=== PATIENT | male | born 1995 | race Hispanic/Latino ===

== ENCOUNTER 2016-09-10 21:50 | Emergency (ER) | payer OTHER ==
[~2016-09-10] VITALS: Ht 175.3 cm; Wt 81.8 kg
[2016-09-10 21:55] VITALS: BP 122/75; PULSE 85; RESP 16; O2SAT 98
--- NOTE | 2016-09-10 23:26 | ED.REPORT ---
HPI-General Illness Date of Service Sep 10, 2016 ED Provider: Mikel Salmeron MD Patient is a 21 year old male s/p recent vitrectomy for a vitreous detachment who presents to the ED after he developed numbness and tingling of his face following Diamox administration at 1600 today. The patient went in for his follow-up appointment today following is vitrectomy and his advertising project manager noticed that he had increased fluid in his eye. The patient was given Diamox and fluid was drained from his eye. The patient reports clouded thinking and states that he simply does not feel like himself. He is generally very anxious and states that he has been more anxious since his procedure in general. The patient states that he has not been eating or sleeping well. The patient must stay in a position with his head titled down, to keep the bubble placed during the vitrectomy in place. Nursing Notes Stated Complaint: OVER DOSE Chief Complaint: Allergic Reaction Nursing Notes Reviewed: Yes Allergies: Coded Allergies: No Known Allergies (Unverified , 09/10/16) General Time Seen by MD: 23:11 Chief Complaint Dizziness, Not feeling well Hx Obtained From: Patient Arrived By: Walk-in Sudden in Onset?: No Onset Occurred: 9 - 12 hours ago Symptom Duration: Since onset Severity: Current: No pain currently Severity: Maximum: No pain Recent Healthcare: No recent hospitalization, Recent doctor visit Similar Sx Previous: No Past Medical History Past Medical History vitreous detachment Reports: Glaucoma Past Surgical History none reported Smoking History Never Smoker Social History vitrectomy Alcohol Use: Denies alcohol use Drug Use: Denies drug use Other Social History: Good social support, Local resident Ambulatory Status Independent Review of Systems + not sleeping or eating well Full Review of Systems Neurologic: Reports: Dizziness, Numbness (tingling) Psychiatric: Reports: Anxiety, Change mental status (clouded thinking) Complete sys rev & neg: except as marked. Physical Exam Vital Signs Vital Signs Date Time Temp Pulse Resp B/P Pulse Ox O2 Delivery O2 Flow Rate FiO2 09/10/16 23:47 82 123/85 99 Room Air 09/10/16 21:55 36.8 85 16 122/75 98 Room Air Initial VS: Reviewed, Vital signs normal Extremities: Vascular intact, Neuro intact Skin: Warm, Dry, No cyanosis Psychiatric: Mood/affect normal, Behavior normal, Normal thought content General/Constitutional: Awake, Alert face down seated position due to recent vitrectomy Head / Eyes: Atraumatic, Normocephalic ENT: Airway patent, Mucous membranes moist Neck: Supple, Full range of motion Respiratory / Chest: Breath sounds NL, Breath sounds = bilat, No respiratory distress, No rales, No rhonchi, No wheezing Cardiovascular: Heart rate NL, Regular rhythm, Heart sounds NL Skin: No rash, Warm, Dry Neurologic: Oriented X3, Speech NL, No motor deficits, No sensory deficits, CN II - XII intact Re-Eval/Medical Decision Med Decision/Clinical Course Nonspecific symptoms possibly related to side effects of Diamox and/or anxiety. There are no life-threatening symptoms and he is improving. He is discharged home. It is expected that all of his symptoms will gradually improve over the 8 -12 hour affective time range of this medication. Source of Hx: Old records Time of Eval: 23:50 Re-Evaluation/Progress Note: Patient was informed that Diamox can last up to 12 hours. He was offered something for sleep, which he declined. Patient understands and agrees with the plan to be discharged home. Discharge instructions and follow-up discussed. All questions were addressed. Return to the ED warnings given. Counseled Regarding: Diagnosis, Need for follow-up, When/why to return to ED Discharge & Departure Primary Impression: Medication side effects Encounter type: initial encounter Qualified Code: T88.7XXA - Unspecified adverse effect of drug or medicament, initial encounter Disposition: Home Discharge Condition All VS Reviewed: Yes Condition: Stable Patient Instructions: Acetazolamide (By mouth) Additional Instructions: Your symptoms sound like a combination of side effects of the Diamox and some anxiety. Diamox lasts 8-12 hours in your system so your symptoms should resolve by that time. No further treatment is needed. Referrals: [facility] (PCP) Paulaibe Attestation Portions of this note were transcribed by Emily Weller. I, Dr. Salmeron personally performed the history, physical exam and medical decision-making; I reviewed and confirmed the accuracy of the information in the transcribed note. Signed by: Joey Miller, 09/11/2016 0013 copies to: [facility] Howard L MD Sep 10, 2016 23:25 Emily Weller Sep 10, 2016 23:32
[2016-09-10 23:47] VITALS: BP 123/85; PULSE 82; O2SAT 99
== END 2016-09-10 23:51 | disposition home or self-care (01) ==
LOC: SED 21:50
DX: R20.2 Paresthesia of skin (principal); R41.0 Disorientation, unspecified; T50.2X5A Adverse effect of carbonic-anhydrase inhibitors, benzothiadiazides and other diuretics, initial encounter; X58.XXXA Exposure to other specified factors, initial encounter; Y92.9 Unspecified place or not applicable; Y93.9 Activity, unspecified; Y99.9 Unspecified external cause status; F41.9 Anxiety disorder, unspecified; Z86.69 Personal history of other diseases of the nervous system and sense organs; Z98.890 Other specified postprocedural states

== ENCOUNTER 2016-12-15 22:16 | Emergency (ER) | payer OTHER ==
[~2016-12-15] VITALS: Ht 175.3 cm; Wt 81.8 kg
[2016-12-15 22:20] VITALS: BP 112/75; PULSE 80; RESP 16; O2SAT 98
[2016-12-15] MEDS ORDERED: Tetracaine 0.5% 4 mL Ophthalmic Solution ONE (23:22)
[2016-12-15] MEDS ORDERED: Tetracaine 0.5% 4 mL Ophthalmic Solution LEFT_EYE ONE (23:25)
--- NOTE | 2016-12-15 23:35 | ED.REPORT ---
HPI-Eye Problem Date of Service December 15, 2016 ED Provider: Yuan Leonard DO Patient is a 21 year old male with a history of glaucoma and retinal detachment surgery on 12/10/16 who presents to the ED complaining of left eye pain onset 4 days ago. Associated symptoms include eye swelling, erythema and pain that radiates into his left mosque and skull. His vision is blurry but not any different than baseline. He denies having any crusting on his eyelids. The patient was seen in [place] 3 days ago to check his pressure, which was 24 and there was no signs of infection. Nursing Notes Stated Complaint: HEAD AND LEFT EYE PAIN Chief Complaint: Eye Nursing Notes Reviewed: Yes Allergies: Coded Allergies: No Known Allergies (Unverified , 09/10/16) General Time Seen by MD: 23:23 Chief Complaint Left eye affected Arrived By: Walk-in Sudden in Onset?: Yes Onset Occurred: 4 days ago Symptom Duration: Since onset Location: : Eye left Recent Healthcare: No recent hospitalization, Recent doctor visit Similar Sx Previous: Yes Past Medical History Past Medical History vitreous detachment Reports: Glaucoma Past Surgical History none reported Smoking History Never Smoker Social History vitrectomy Alcohol Use: Denies alcohol use Drug Use: Denies drug use Other Social History: Good social support, Local resident Ambulatory Status Independent Review of Systems Review of Systems Note: eye swelling Eyes: Reports: Eye pain left, Redness left Complete sys rev & neg: except as marked. 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 minimal left visual acuity, can barely see when 5 fingers where held up pupils sluggish to react conjunctival injection no obvious cells in anterior chamber General/Constitutional: Awake, Alert Skin: Atraumatic, Color NL, No rash, Warm, Dry Neurologic: Oriented X3, Speech NL, No motor deficits, No sensory deficits Respiratory / Chest: Atraumatic, Breath sounds NL, Breath sounds = bilat, No respiratory distress Cardiovascular: Heart rate NL, Regular rhythm, Heart sounds NL Abdomen: Atraumatic, Soft, Non-tender Psychiatric: Affect NL, Mood NL Interpretation & Diagnostics CT Head Interpretation CONCLUSION: No acute intracrainial findings. at 0005 Study: Head CT no contrast Interpretation / Wet Read by: Interpret - Radiologist Re-Eval/Medical Decision Med Decision/Clinical Course No signs of endophthalmitis. There is no hypopyon visualized. Difficult for me to see the retina. Pressure was 36. I consulted with his biological science aide who knows him well. He does not want me to do anything more beyond treating his pain and will see him in the office later today. CT scan was reassuring. Pain was controlled with Percocet. Yogesh is on glaucoma medicines and will continue this. He will follow up later today. Re-Evaluation/Progress : Time of Eval: 00:40 Re-Evaluation/Progress Note: Discussed CT and plan for discahrge. The patient understands and agrees to the plan for discharge. All questions were addressed. Consultation : Consulted With: On-call physician Call Returned at: 23:43 Case Advocate: Will see patient, Agrees with eval, Agrees with plan Note: Consult with Dr. Aguilar, coat feller, who will see the patient tomorrow. Counseled Regarding: Diagnosis, Lab results, Need for follow-up, When/why to return to ED Discharge & Departure Primary Impression: Conjunctival injection Laterality: left Qualified Code: H11.432 - Conjunctival hyperemia, left eye Additional Impression: Eye pain Laterality: left Qualified Code: H57.12 - Ocular pain, left eye Disposition: Home Discharge Condition All VS Reviewed: Yes Condition: Stable Patient Instructions: Eye Pain (ED) Additional Instructions: Your head CT results were normal. Your eye doctor will see you tomorrow. Call the office tomorrow morning for a follow up time. Continue to stay on your eye drops and medications. You can take one Percocet every 6 hours for pain and one Zofran every 3 hours for nausea. Return to the emergency department if you develop any new or worsening symptoms. Referrals: [facility] (PCP) PATRICIA AGUILAR MD Attestation Portions of this note were transcribed by Francia Livingston. I, Dr. Leonard personally performed the history, physical exam and medical decision-making; I reviewed and confirmed the accuracy of the information in the transcribed note. Signed by: Joey Hopkins, 12/16/16 and 0020 copies to: [facility]; PATRICIA AGUILAR MD, Todd P DO December 15, 2016 23:35 Grace Livingston December 16, 2016 00:13
[2016-12-15] MEDS ORDERED: oxyCODONE-Acetamin 5-325 mg Tablet PO ONE (23:40)
[2016-12-16] MEDS ORDERED: _Ondansetron ODT 4 mg Tablet PO PRN (00:05)
[2016-12-16] MEDS ORDERED: _oxyCODONE/APAP 5-325 mg Tablet PO PRN (00:05)
[2016-12-16 01:06] VITALS: BP 107/76; PULSE 52; PULSE 62; RESP 16; O2SAT 99
--- NOTE | 2016-12-16 10:35 | DRSVH ---
PROCEDURE: CT BRAIN WITHOUT CONTRAST ([id number]) INDICATIONS: left retrobulbar headache, recent eye surgery TECHNIQUE: Noncontrast 4.5 mm thick angled axial sections acquired from the foramen magnum to the vertex, with c oronal reformats. COMPARISON: None. FINDINGS: Image quality: Excellent. CSF spaces: Basal cisterns are patent. No extra-axial fluid collections. Ventricles are normal in size and shape. Brain: No midline shift. No intracranial masses or hemorrhage. White-white matter interface is norm al. Skull and face: Calvarium and visualized facial bones are intact, without suspicious lesions. Sinuses: Visualized sinuses and mastoids are clear. IMPRESSION: 1. No acute intracranial process. Dictated by: Zeynep Wetzel M.D. on 12/16/2016 at 10:27 Approved by: Zeynep Wetzel M.D. on 12/16/2016 at 10:33
== END 2016-12-16 01:07 | disposition home or self-care (01) ==
LOC: SED 22:16
DX: H11.432 Conjunctival hyperemia, left eye (principal); H40.9 Unspecified glaucoma; Z98.890 Other specified postprocedural states

== ENCOUNTER 2016-12-30 21:24 | Emergency (ER) | payer OTHER ==
[~2016-12-30] VITALS: Ht 175.3 cm; Wt 81.8 kg
[2016-12-30 21:26] VITALS: BP 115/74; PULSE 74; RESP 16; O2SAT 99
--- NOTE | 2016-12-30 22:57 | ED.REPORT ---
HPI-General Illness Date of Service December 30, 2016 ED Provider: Yareli Sánchez MD Pt is a 21 y/o relatively healthy male w/ a hx of glaucoma s/p right eye removal presenting to the ED c/o hot and cold flashes onset yesterday. He c/o associated pain about the feet and knees, facial and bilateral hand flashes of warmth, and a short period of pulsating sensation about the abdomen which occurred only once yesterday. Pt denies dysuria, rash, nausea, vomiting, diarrhea, myalgias, cough, SOB, CP. The patient takes an antibiotic eyedrop and uses prednisolone eyedrops for his glaucoma. He has no history of RA or other rheumatoid diseases. He has not tried Ibuprofen for this pain. He has no family history of glaucoma and was diagnosed at age 5. 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 Nursing Notes Stated Complaint: HOT & COLD FLASHES, LEG PAIN Chief Complaint: General Complaint Nursing Notes Reviewed: Yes Allergies: Coded Allergies: No Known Allergies (Unverified , 09/10/16) General Time Seen by MD: 22:56 Chief Complaint Multip medical complaints Hx Obtained From: Patient Arrived By: Walk-in Sudden in Onset?: Yes Onset Occurred: 1 day ago Symptom Duration: Since onset Location: : Abdomen: Foot left: Foot right: Knee left: Knee right Quality: Painful Severity: Current: No pain currently Severity: Maximum: Mild Similar Sx Previous: No Past Medical History Past Medical History vitreous detachment glaucoma dxed age 5 Reports: Glaucoma Past Surgical History Right eye removed Smoking History Never Smoker Social History Alcohol Use: Denies alcohol use Drug Use: Denies drug use Other Social History: Good social support, Local resident Ambulatory Status Independent Review of Systems +hot and cold flashes Full Review of Systems Constitutional: Denies: Chills, Fever Respiratory: Denies: Non-productive cough, Shortness of breath Cardiovascular: Denies: Chest pain, Dyspnea on exertion GI: Reports: Abdominal pain, Denies: Diarrhea, Nausea, Vomiting Male: Denies Dysuria, Denies Hematuria Musculoskeletal: Reports: Extremity pain, Joint pain, Denies: Myalgia Complete sys rev & neg: except as marked. Physical Exam Vital Signs Vital Signs Date Time Temp Pulse Resp B/P Pulse Ox O2 Delivery O2 Flow Rate FiO2 12/31/16 01:09 36.9 72 16 118/77 97 Room Air 12/31/16 00:42 36.6 70 17 118/72 98 Room Air 12/30/16 21:26 36.7 74 16 115/74 99 Room Air Initial VS: Reviewed, Vital signs normal ENT: Mucous membranes moist, Conjunctiva normal, No scleral icterus Neck: Supple, Full range of motion Respiratory: Breath sounds normal, Clear to auscultation, No respiratory distress Cardiovascular: Regular rate & rhythm, Heart sounds normal, Intact distal pulses Abdomen / GI: Soft, Non-tender, No guarding, No rebound, No distention Extremities: Vascular intact, Neuro intact, No swelling, No tenderness Skin: Warm, Dry, No cyanosis Neurologic: Alert, Oriented, Nonfocal Psychiatric: Mood/affect normal, Behavior normal, Normal thought content General/Constitutional: Awake, Alert, No acute distress, Cooperative, Not toxic appearing Head / Eyes: Atraumatic, Normocephalic Right eye missing Left eye is proptotic and has a subconjunctival hemorrhage Interpretation & Diagnostics Lab Results Interpretation Result Diagram: 12/30/16232712/30/162327 Test 12/30/16 23:28 White Blood Count 5.9th/mm3 (3.8-10.1) Red Blood Count 5.18mil/mm3 (4.40-5.80) Hemoglobin 15.2g/dL (13.8-17.2) Hematocrit 45.2% (41.0-50.0) Mean Corpuscular Volume 87.3fL (81-100) Mean Corpuscular Hemoglobin 29.3pg (27.0-35.0) Mean Corpuscular Hemoglobin Concent 33.6% (32.0-37.0) Red Cell Distribution Width 13.8% (12.3-15.4) Platelet Count 228bil/L (150-400) Neutrophils (%) (Auto) 64.2% (40-74) Lymphocytes (%) (Auto) 23.6% (14-46) Monocytes (%) (Auto) 10.5% (4-12) Eosinophils (%) (Auto) 1.0% (0-5) Basophils (%) (Auto) 0.5% (0-3) Erythrocyte Sedimentation Rate 2mm/hr (0-15) Sodium Level 141mEq/L (134-144) Potassium Level 4.0mEq/L (3.5-5.2) Chloride Level 101mEq/L (97-108) Carbon Dioxide Level 25mmol/L (18-29) Blood Urea Nitrogen 8mg/dL (6-20) Creatinine 0.55mg/dL (0.76-1.27) Estimat Glomerular Filtration Rate 200mL/min (>59) Glucose Level 99mg/dL (60-99) Calcium Level 9.6mg/dL (8.5-10.1) Total Bilirubin 0.4mg/dL (0.0-1.2) Aspartate Amino Transf (AST/SGOT) 17U/L (0-50) Alanine Aminotransferase (ALT/SGPT) 23U/L (0-44) Alkaline Phosphatase 112U/L (25-150) C-Reactive Protein 0.1mg/dL (0.0-0.5) Total Protein 7.7g/dL (6.4-8.4) Albumin 4.4g/dL (3.4-5.0) Hold Polanco Top Tube Received (Received) Re-Eval/Medical Decision Time of Eval: 00:40 Patient Status: Condition improved, Moderate relief, Pain improved Re-Evaluation/Progress Note: Pt rechecked. Discussed lab results. Informed pt of plan for treatment. Pt understands and agrees with plan for treatment. F/U instructions and RTER warnings given. All questions addressed. Counseled Regarding: Diagnosis, Lab results, Need for follow-up, When/why to return to ED Discharge & Departure Primary Impression: Synovitis Disposition: Home Discharge Condition All VS Reviewed: Yes Condition: Stable Additional Instructions: I am happy to let you know that lab work is quite reassuring. There is no evidence of significant infection nor are there markers of significant inflammation or rheumatologic type diseases. I suspect your symptoms are due to a viral infection and you will likely improve with time. It is safe to use ibuprofen to help with the pain and warm feelings. If you are getting worse please return to the ER. If you are not significantly better by early next week, please follow up with your primary care doctor. Thank you for letting us take care of you today. Referrals: Leatha Castillo MD (PCP) Scribe Attestation Portions of this note were transcribed by Reddy Hernandez. I, Dr. Sánchez personally performed the history, physical exam and medical decision-making; I reviewed and confirmed the accuracy of the information in the transcribed note. Signed by Joey Willoughby, 12/30/16 1 copies to: Leatha Castillo MD, Shawna L MD December 30, 2016 22:57 REDDY HERNANDEZ December 30, 2016 23:12
[2016-12-30 23:49] LABS: BASOPHILS % (AUTO) 0.5 % (0-3); MONOCYTES % (AUTO) 10.5 % (4-12); Mean Corpuscular Hemoglobin 29.3 pg (27.0-35.0); Mean Corpuscular Volume 87.3 fL (81-100); NEUTROPHILS % (AUTO) 64.2 % (40-74); Platelet Count 228 bil/L (150-400)
[2016-12-31 00:21] LABS: ERYTHROCYTE SEDIMENTATION RATE 2 mm/hr (0-15)
[2016-12-31 00:42] VITALS: BP 118/72; PULSE 70; RESP 17; O2SAT 98
[2016-12-31 01:09] VITALS: BP 118/77; PULSE 72; RESP 16; O2SAT 97
== END 2016-12-31 00:59 | disposition home or self-care (01) ==
LOC: SED 21:24
DX: M65.9 Synovitis and tenosynovitis, unspecified (principal); H40.9 Unspecified glaucoma